=== PATIENT | female | born 1945 | race Caucasian/White ===

== ENCOUNTER → 2018-01-19 11:49 | Outpatient (CLI) | payer OTHER, SELFPAY ==
--- NOTE | 2018-01-19 | DI.MG.S_ITS ---
BILATERAL DIGITAL SCREENING MAMMOGRAM 3D/2D WITH CAD: 01/19/2018 CLINICAL: Routine screening. Family history of breast cancer. Comparison is made to exams dated: 01/07/2016 mammogram, 03/21/2014 mammogram, and 01/20/2012 mammogram - [facility]. There are scattered fibroglandular elements in both breasts. Current study was also evaluated with a Computer Aided Detection (CAD) system. No significant masses, calcifications, or other findings are seen in either breast. There has been no significant interval change. IMPRESSION: NEGATIVE There is no mammographic evidence of malignancy. A 1 year screening mammogram is recommended.(01/20/2019) This exam was interpreted at Station ID: [id number]. NOTE: For mammograms, a report in lay terms will be sent to the patient. Approximately 15% of breast malignancies will not be visualized mammographically. In the management of a palpable breast mass, a negative mammogram must not discourage biopsy of a clinically suspicious lesion. Electronically Signed By: Minerva steen/erendira:01/19/2018 14:25:01 letter sent: Normal Exam ACR BI-RADS Category 1: Negative 3341F
== END ==
PROVIDERS: Visit Provider Internal Medicine
DX: Z12.31 Encounter for screening mammogram for malignant neoplasm of breast (principal); Z80.3 Family history of malignant neoplasm of breast
CPT/HCPCS: 77063; 77067

== ENCOUNTER 2018-09-12 12:47 | Day surgery (SDC) | payer OTHER, SELFPAY ==
--- NOTE | 2018-09-12 | PATH_ITS ---
[facility] Accession Number: [id number] . 01 Material submitted: . colon - ASCENDING COLON POLYP . 02 Diagnosis: Ascending Colon, Polyp, Biopsy: Tubular adenoma. [facility]/09/13/2018 . 02 Electronically signed: . Yanira Solo MD, Pathologist NPI- [id number] . 01 Gross description: . ASCENDING COLON POLYP: Received in formalin is 1 fragment(s) of milton, soft tissue measuring 0.3 x 0.3 x 0.3 cm which is entirely submitted and submitted entirely in 1 cassette(s) /DMC /DMC . 02 Pathologist provided ICD-10: D12.2 . 02 CPT . 425751 Performed at: 01 [facility] [address] [id number] MD Josué Lew MD Phone: [phone] Performed at: 02 [facility] [address] [place], [place] [id number] MD Yanira Solo MD Phone: [phone]
[2018-09-12 13:13] VITALS: BP 140/77; PULSE 63; RESP 16; TEMP 36.8; O2SAT 100; BMI 27.4
[2018-09-12] MEDS: SODIUM CHLORIDE 0.9% 1,000 ML 200 ML IV (13:35)
--- NOTE | 2018-09-12 13:44 | PM.HP.1 ---
History of Present Illness Chief complaint: [id number] Patient History Social History household members: none Family & Social History Social History: household members none Meds Home Medications Medication Instructions Recorded Confirmed Type valacyclovir 500 mg PO BID 09/12/18 09/12/18 History Allergies Allergy/AdvReac Type Severity Reaction Status Date / Time alendronate sodium Allergy Mild Nausea Verified 09/12/18 13:11 Review of Systems Review of Systems All systems reviewed & are unremarkable except as noted in HPI and below Exam Vital Signs (past 8 hours): - 09/12/18 13:13 Temperature 98.2 F Pulse Rate 63 Respiratory Rate 16 Blood Pressure 140/77 Pulse Oximetry 100 Oxygen Delivery Method Room Air Narrative Exam Narrative: Awake alert and oriented x3, pupils reactive, heart regular rate rhythm, lungs clear, abdomen nondistended, extremities without edema Assessment & Plan Assessment & Plan narrative: Rectal bleeding, colonoscopy
[2018-09-12] MEDS: fentaNYL 250 MCG/5 ML INJ IV (14:31)
[2018-09-12] MEDS: MIDAZOLAM 5 MG/5 ML VIAL IV (14:32)
--- NOTE | 2018-09-12 14:37 | PM.OP.ENDO ---
Operative Date/Time/Diagnoses Date of procedure: 09/12/18 Procedure & Clinicians Study performed: Colonoscopy with cold biopsy Moderate conscious sedation was administered by the endoscopy nurse and supervised by the endoscopist. The following parameters were monitored: Oxygen saturation, heart rate, blood pressure, and response to care. Sedation: 3 mg midazolam, 100 mg fentanyl Indications: Rectal bleeding. Last colonoscopy was June 2018. Personal history of colon polyps. Procedure Notes Procedure in detail: Prior to the procedure, history and physical was performed, and patient medications and allergies were reviewed. Preprocedure nursing history and assessment was reviewed. Patient identification and proposed procedure were verified by the physician and nurse in the procedure room. The physical status of the patient was reassessed after the procedure. After informed consent was obtained including risks, benefits, and alternatives, the scope was passed under direct vision. Throughout the procedure, the patient's blood pressure, pulse, and oxygen saturations were monitored continuously. The colonoscope was introduced through the anus and advanced to the cecum as identified by the appendiceal orifice and ileocecal valve. The patient tolerated the procedure well. Bowel prep was deemed adequate to detect polyps greater than 5 mm. PAT and perianal examinations were unremarkable. Retroflexion in the rectum revealed grade 2 nonbleeding internal hemorrhoids. A 3 mm sessile polyp in ascending colon was resected and retrieved with the Iwebalizeo biopsy forceps. The colon was otherwise normal appearing. Impression: Internal hemorrhoids 3 mm ascending colon polyp removed Complications: other (EBL minimal. No complications) Plan for aftercare: Follow-up pathology results Repeat colonoscopy in 5 years for screening purposes Resume previous diet Resume home medications Discharge home with escort
[2018-09-12 14:38] VITALS: BP 130/46; PULSE 62; RESP 14; TEMP 36.3; O2SAT 100
[2018-09-12 14:43] VITALS: BP 128/72; PULSE 60; RESP 14; O2SAT 99
[2018-09-12 14:49] VITALS: BP 130/69; PULSE 55; RESP 16; TEMP 36.3; O2SAT 100
[2018-09-12 15:10] VITALS: BP 135/60; PULSE 57; RESP 14; TEMP 36.8; O2SAT 100
== END 2018-09-12 15:20 | disposition home or self-care (01) ==
LOC: ENDO 12:48
PROVIDERS: Visit Provider Internal Medicine
PROC: 0DJD8ZZ Inspection of Lower Intestinal Tract, Via Natural or Artificial Opening Endoscopic (ICD-10-PCS; CPT 45378; principal; 2018-09-12 14:00)
DX: K62.5 Hemorrhage of anus and rectum (principal); K64.1 Second degree hemorrhoids; D12.2 Benign neoplasm of ascending colon
CPT/HCPCS: 45380; J2250; J3010

== ENCOUNTER → 2018-10-30 09:52 | Outpatient (CLI) | payer OTHER, SELFPAY ==
[2018-10-30 11:09] LABS: Blood Urea Nitrogen 11 mg/dL (7-17); Carbon Dioxide 27 mmol/L (22-32); Chloride 95 mmol/L (98-107); Cholesterol 259 mg/dL (140-199); Estimated Glomerular Filt Rate > 60.0 mL/min (>60); Glucose 98 mg/dL (80-110); HDL Cholesterol 77 mg/dL (40-60); HEMOLYSIS < 15 (0-50); LDL Cholesterol Calculated 152 mg/dL (<100); Potassium 5.1 mmol/L (3.4-5.1); Sodium 131 mmol/L (137-145); Triglycerides 152 mg/dL (35-150)
== END ==
PROVIDERS: PCP Internal Medicine; Visit Provider Internal Medicine
DX: Z00.00 Encounter for general adult medical examination without abnormal findings (principal); G60.3 Idiopathic progressive neuropathy; E87.1 Hypo-osmolality and hyponatremia
CPT/HCPCS: 36415; 80048; 80061

== ENCOUNTER → 2018-11-05 12:25 | Outpatient (CLI) | payer OTHER, SELFPAY | PROVIDERS: PCP Internal Medicine; Visit Provider Internal Medicine | DX: M81.0 Age-related osteoporosis without current pathological fracture (principal); Z78.0 Asymptomatic menopausal state; Z82.62 Family history of osteoporosis | CPT/HCPCS: 77080 ==

== ENCOUNTER → 2020-03-14 14:54 | Outpatient (CLI) | payer OTHER, SELFPAY ==
--- NOTE | 2020-03-14 | DI.MG.S_ITS ---
BILATERAL DIGITAL SCREENING MAMMOGRAM 3D/2D WITH CAD: 03/14/2020 CLINICAL: Routine screening. Family history of breast cancer. Comparison is made to exams dated: 01/19/2018 mammogram - [facility], 01/07/2016 mammogram, and 03/21/2014 mammogram - [facility]. There are scattered fibroglandular elements in both breasts. Current study was also evaluated with a Computer Aided Detection (CAD) system. No significant masses, calcifications, or other findings are seen in either breast. There has been no significant interval change. IMPRESSION: NEGATIVE There is no mammographic evidence of malignancy. A 1 year screening mammogram is recommended. This exam was interpreted at Station ID: [id number]. NOTE: For mammograms, a report in lay terms will be sent to the patient. Approximately 15% of breast malignancies will not be visualized mammographically. In the management of a palpable breast mass, a negative mammogram must not discourage biopsy of a clinically suspicious lesion. Electronically Signed By: Minerva steen/erendira:03/16/2020 16:20:30 letter sent: Normal Exam ACR BI-RADS Category 1: Negative 3341F
== END ==
PROVIDERS: PCP Internal Medicine; Referring Provider Internal Medicine; Visit Provider Internal Medicine
DX: Z12.31 Encounter for screening mammogram for malignant neoplasm of breast (principal); Z80.3 Family history of malignant neoplasm of breast
CPT/HCPCS: 77063; 77067

== ENCOUNTER → 2020-05-20 12:49 | Outpatient (CLI) | payer OTHER, SELFPAY ==
--- NOTE | 2020-05-20 | DI.RAD.S_ITS ---
PROCEDURE: XR LUMBAR SPINE 2-3V INDICATIONS: LOW BACK PAIN TECHNIQUE: 3 views of the lumbar spine were acquired. COMPARISON: None. FINDINGS: Bones: 5 fvf-zko-alnyrsz vertebrae are present. There is trace retrolisthesis of L2 on L3, L5 on S1. Mild multilevel degenerative disc space narrowing is present most severe at L5-S1. Moderate to severe foraminal narrowing is noted L5-S1, mild to moderate L4-5. Non bridging anterior osteophytes are noted at L4 and L5. Compression deformity measuring 36% is present at L1. No vertebral body compression fractures. No suspicious bony lesions. Soft tissues: Overlying bowel gas pattern is normal. No suspicious soft tissue calcifications. IMPRESSION: 1. L1 compression deformity of indeterminate age. 2. Degenerative changes most severe at L4-5 and L5-S1. Dictated by: Suri Dixon M.D. on 05/20/2020 at 16:40 Approved by: Suri Dixon M.D. on 05/20/2020 at 16:41
== END ==
PROVIDERS: PCP Internal Medicine; Referring Provider Physician Assistant; Visit Provider Physician Assistant
DX: M54.5 Low back pain (principal); M47.816 Spondylosis without myelopathy or radiculopathy, lumbar region; M47.817 Spondylosis without myelopathy or radiculopathy, lumbosacral region; M43.8X6 Other specified deforming dorsopathies, lumbar region
CPT/HCPCS: 72100

== ENCOUNTER 2020-06-14 16:26 | Emergency (ER) | payer OTHER, SELFPAY ==
[2020-06-14 16:36] VITALS: BP 185/81; PULSE 85; RESP 14; O2SAT 99
[2020-06-14 16:42] VITALS: BP 185/81; PULSE 82; RESP 12; TEMP 36.8; O2SAT 100; BMI 26.6
--- NOTE | 2020-06-14 16:51 | ED_ITS ---
HPI - General Adult <Speedy TiptonDO bimal - Last Filed: 06/15/20 06:56> General Chief complaint: Abdominal Pain Stated complaint: constipation past week Time Seen by Provider: 06/14/20 16:42 Source: patient Mode of arrival: Ambulatory Limitations: no limitations History of Present Illness HPI narrative: Patient is a 74-year-old female who is here for which she states is constipation. She states she has not had a bowel movement in the past week. She has tried multiple doses of akaj-fkd-jndjmos laxatives without any improvement. She states that her symptoms started when she re-injured her back. He states that several weeks ago she injured her back trying to lift her garage door when she did not have any power. She was placed on anti-inflammatories and Tylenol and Robaxin. She went to go see her primary doctor who ordered x-rays who told her that there was a age indeterminate fracture where she was having discomfort. Was assumed that she did have a fracture. She thought that her symptoms were improving until she was trying to shovel some snow and re-injured her back. She states she is not taking any opioid medications. She has never had any abdominal surgeries. No vomiting. She does feel like her abdomen is distended. She feels like her back pain is worsening. Related Data Home Medications Medication Instructions Recorded Confirmed valacyclovir 500 mg PO BID 09/12/18 09/12/18 Allergies Allergy/AdvReac Type Severity Reaction Status Date / Time alendronate sodium Allergy Mild Nausea Verified 09/12/18 13:11 Review of Systems <Speedy DanutaDO bimal - Last Filed: 06/15/20 06:56> Constitutional Constitutional: Denies fever(s) and Denies headache(s) ENT Ears, Nose, Mouth, and Throat: Denies headache(s) Cardiovascular Cardiovascular: Denies chest pain and Denies dyspnea Respiratory Respiratory: Denies dyspnea Gastrointestinal Gastrointestinal: Denies abdominal pain, Reports bloating, Reports constipation, Denies nausea and Denies vomiting Genitourinary Genitourinary: Denies dysuria Genitourinary: Denies dysuria Musculoskeletal Musculoskeletal: Reports back pain Integumentary/Breasts Skin/Breast: Denies lesions and Denies rash Neurologic Neurologic: Denies behavioral changes and Denies headache(s) Psychiatric Psychiatric: Denies behavioral changes Hematologic/Lymphatic On Anticoagulants: No Allergic/Immunologic Allergic/Immunologic: Denies urticaria Patient History <DO Anthony Ch Last Filed: 06/15/20 06:56> Medical History Back pain Social History household members: none Smoking Status: Never smoker Smoking Status: Never smoker alcohol intake frequency: 0-2 drinks per day Substance Use Type: does not use Exam <Speedy Grossman DO - Last Filed: 06/15/20 06:56> Initial Vital Signs Initial Vital Signs: Vital Signs Pulse Rate 85 06/14/20 16:36 Respiratory Rate 14 06/14/20 16:36 Blood Pressure 185/81 H 06/14/20 16:36 Pulse Oximetry 99 06/14/20 16:36 Const General: cooperative and comfortable Limitations: mental status not altered HENMT Head: normal to inspection and normocephalic Resp Effort & Inspection: normal respiratory effort Cardio Rate: regular rate GI Inspection: distended Palpation: tender (Diffuse) Skin Lesions: no lesions Rashes: no rashes Neuro General: patient alert and patient awake Cognition: normal cognition Speech: speech normal Extrem General: capillary refill normal Psych Appearance: grossly normal and well kempt <Lcuia Lassiter DO - Last Filed: 06/14/20 20:47> Initial Vital Signs Initial Vital Signs: Vital Signs Pulse Rate 85 06/14/20 16:36 Respiratory Rate 14 06/14/20 16:36 Blood Pressure 185/81 H 06/14/20 16:36 Pulse Oximetry 99 06/14/20 16:36 Course <Speedy Grossman DO - Last Filed: 06/15/20 06:56> Orders Ordered: Discontinued Medications Sodium Chloride (Normal Saline 0.9%) 1,000 mls @ 1,000 mls/hr IV BOLUS ONE Stop: 06/14/20 17:50 Last Infusion: 06/14/20 18:44 Dose: 0 mls/hr Documented by: Admin: 06/14/20 17:32 Dose: 1,000 mls/hr Documented by: TRACI Magnesium Citrate (Magnesium Citrate 300 Ml Solution) 300 ml PO NOW ONE Stop: 06/14/20 20:17 Last Admin: 06/14/20 20:22 Dose: 300 ml Documented by: TRACI Sodium Biphosphate/Sodium Phosphate (Fleets Enema) 1 each AR NOW ONE Stop: 06/14/20 18:41 Last Admin: 06/14/20 18:59 Dose: 1 each Documented by: TRACI Vital Signs Vital signs: Vital Signs - 8 hr 06/14/20 16:36 06/14/20 16:42 06/14/20 17:00 Temperature 98.3 F Pulse Rate 85 82 71 Respiratory Rate 14 12 14 Blood Pressure 185/81 H 185/81 H 171/78 H Pulse Oximetry 99 100 100 06/14/20 17:31 06/14/20 20:25 Temperature Pulse Rate 71 91 H Respiratory Rate 16 14 Blood Pressure 174/120 H 163/86 H Pulse Oximetry 98 99 <Lucia Lassiter DO - Last Filed: 06/14/20 20:47> Orders Ordered: Discontinued Medications Sodium Chloride (Normal Saline 0.9%) 1,000 mls @ 1,000 mls/hr IV BOLUS ONE Stop: 06/14/20 17:50 Last Infusion: 06/14/20 18:44 Dose: 0 mls/hr Documented by: Admin: 06/14/20 17:32 Dose: 1,000 mls/hr Documented by: TRACI Magnesium Citrate (Magnesium Citrate 300 Ml Solution) 300 ml PO NOW ONE Stop: 06/14/20 20:17 Last Admin: 06/14/20 20:22 Dose: 300 ml Documented by: TRACI Sodium Biphosphate/Sodium Phosphate (Fleets Enema) 1 each AR NOW ONE Stop: 06/14/20 18:41 Last Admin: 06/14/20 18:59 Dose: 1 each Documented by: TRACI Vital Signs Vital signs: Vital Signs - 8 hr 06/14/20 16:36 06/14/20 16:42 06/14/20 17:00 Temperature 98.3 F Pulse Rate 85 82 71 Respiratory Rate 14 12 14 Blood Pressure 185/81 H 185/81 H 171/78 H Pulse Oximetry 99 100 100 06/14/20 17:31 06/14/20 20:25 Temperature Pulse Rate 71 91 H Respiratory Rate 16 14 Blood Pressure 174/120 H 163/86 H Pulse Oximetry 98 99 Medical Decision Making <Speedy Grossman DO - Last Filed: 06/15/20 06:56> Lab Data Lab results reviewed: Yes I reviewed the patient's lab results. Result diagrams: 06/14/20 17:27 06/14/20 17:27 Labs: Lab Results 06/14/20 06/14/20 Range/Units 17:27 17:27 WBC 5.1 (4.5-11.0) X10^3/uL RBC 3.84 L (4.0-5.2) X10^6/uL Hgb 11.5 L (12.0-16.0) g/dL Hct 34.1 L (36-46) % MCV 88.7 (80-100) fL MCH 29.9 (26-34) PG MCHC 33.7 (30-36) % RDW 12.9 (11.6-14.8) % Plt Count 300 (150-400) X10^3/uL Neut % (Auto) 65.4 (50-75) % Lymph % (Auto) 25.8 (25-40) % [place] % (Auto) 7.6 (3-14) % Eos % (Auto) 0.7 L (2-4) % Baso % (Auto) 0.5 (0-2) % Neut # (Auto) 3300 (6734-0624) /uL Lymph # (Auto) 1300 (1559-8275) /uL [place] # (Auto) 400 (0-900) /uL Eos # (Auto) 0 (0-450) /uL Baso # (Auto) 0 (0-100) /uL Sodium 123 L (137-145) mmol/L Potassium 3.7 (3.4-5.1) mmol/L Chloride 92 L (98-107) mmol/L Carbon Dioxide 26 (22-32) mmol/L BUN 7 (7-17) mg/dL Creatinine 0.49 L (0.52-1.04) mg/dL Estimated GFR > 60.0 (>60) mL/min BUN/Creatinine Ratio 14.3 (6-22) Glucose 110 (80-110) mg/dL Calcium 9.7 (8.4-10.2) mg/dL Total Bilirubin 0.4 (0.2-1.3) mg/dL AST 24 (14-36) IU/L ALT 14 (<35) IU/L Alkaline Phosphatase 119 (38-126) U/L Total Protein 7.0 (6.3-8.2) g/dL Albumin 4.3 (3.5-5.0) g/dL Globulin 2.7 (1.7-4.1) g/dL Albumin/Globulin Ratio 1.6 (1.0-2.8) Lipase 43 (23-300) U/L MDM Narrative Medical decision making narrative: Given her back pain, age in the use of laxatives at home without any improvement we did feel the need to do a CT scan to evaluate for obstruction. Care turned over to Dr. Lassiter to follow-up on CT scan and disposition. <Lucia Lassiter, DO - Last Filed: 06/14/20 20:47> Lab Data Lab results reviewed: Yes I reviewed the patient's lab results. Labs: Lab Results 06/14/20 06/14/20 Range/Units 17:27 17:27 WBC 5.1 (4.5-11.0) X10^3/uL RBC 3.84 L (4.0-5.2) X10^6/uL Hgb 11.5 L (12.0-16.0) g/dL Hct 34.1 L (36-46) % MCV 88.7 (80-100) fL MCH 29.9 (26-34) PG MCHC 33.7 (30-36) % RDW 12.9 (11.6-14.8) % Plt Count 300 (150-400) X10^3/uL Neut % (Auto) 65.4 (50-75) % Lymph % (Auto) 25.8 (25-40) % [place] % (Auto) 7.6 (3-14) % Eos % (Auto) 0.7 L (2-4) % Baso % (Auto) 0.5 (0-2) % Neut # (Auto) 3300 (3320-7063) /uL Lymph # (Auto) 1300 (6984-0875) /uL [place] # (Auto) 400 (0-900) /uL Eos # (Auto) 0 (0-450) /uL Baso # (Auto) 0 (0-100) /uL Sodium 123 L (137-145) mmol/L Potassium 3.7 (3.4-5.1) mmol/L Chloride 92 L (98-107) mmol/L Carbon Dioxide 26 (22-32) mmol/L BUN 7 (7-17) mg/dL Creatinine 0.49 L (0.52-1.04) mg/dL Estimated GFR > 60.0 (>60) mL/min BUN/Creatinine Ratio 14.3 (6-22) Glucose 110 (80-110) mg/dL Calcium 9.7 (8.4-10.2) mg/dL Total Bilirubin 0.4 (0.2-1.3) mg/dL AST 24 (14-36) IU/L ALT 14 (<35) IU/L Alkaline Phosphatase 119 (38-126) U/L Total Protein 7.0 (6.3-8.2) g/dL Albumin 4.3 (3.5-5.0) g/dL Globulin 2.7 (1.7-4.1) g/dL Albumin/Globulin Ratio 1.6 (1.0-2.8) Lipase 43 (23-300) U/L Imaging Data CT scan - abdomen/pelvis: Radiologist's Impression: PROCEDURE: CT ABDOMEN PELVIS W CON INDICATIONS: Back pain, abdominal pain, constipation TECHNIQUE: After the administration of intravenous contrast, 5 mm thick sections acquired from the diaphragm to the symphysis. 5 mm coronal and sagittal reformats were acquired. For radiation dose reduction, the following was used: automated exposure control, adjustment of mA and/or kV according to patient size. COMPARISON: [facility], CR, XR LUMBAR SPINE 2-3V, 05/20/2020, 12:57. FINDINGS: Image quality: Excellent. ABDOMEN: Lung bases: Lung bases are clear. Heart size is normal. Small hiatal hernia. Solid organs: Liver is normal in size. Ill-defined hypodensity in segment 4B near the gallbladder. This could represent focal fatty infiltration. Small hypodense foci scattered in the liver likely benign cyst or hemangioma. Gallbladder is u nremarkable. Biliary system is non dilated. Pancreas enhances normally. Spleen is normal in size and enhancement. No adrenal nodules. Kidneys demonstrate normal size and enhancement, without hydronephrosis. Peritoneum and bowel: The stomach is not distended. There is no small bowel obstruction. There is increased stool throughout the colon. The transverse colon appears thickened. No free fluid or air. Nodes and vessels: No retroperitoneal or mesenteric adenopathy by size criteri a. Aorta and inferior vena cava are normal in size. Miscellaneous: No ventral hernias. PELVIS: Genitourinary: Bladder wall thickness is normal. Small right ovarian cyst measuring 1.7 cm. Small right ovarian calcifications. Miscellaneous: No inguinal hernias or adenopathy. Bones: No suspicious bony lesions. L1 and L2 compression fracture . IMPRESSION: 1. L2 compression fracture new in the interval compared to 05/20/2020. This could be amenable to vertebroplasty. L1 compression fractures similar to the prior exam. 2. Prominent stool throughout the colon concerning for constipation. There appears to be mild thickening of the transverse colon. 3. Ill-defined hypodensity in segment 4B of the liver. This most likely represents focal fatty infiltration. This could be further characterized with MRI of the liver with IV contrast. Dictated by: Matthew Ramírez M.D. on 06/14/2020 at 18:20 MDM Narrative Medical decision making narrative: Patient signed out to me by Dr. Grossman have seen evaluated her myself. CT does show new L2 compression fracture she knew she had L1 compression stool in the colon. She states that she has been drinking a large amount of water because she is constipated which is likely the cause of her hyponatremia. At this time I recommend she drink some Gatorade as opposed to large quantities of water and have her sodium rechecked with her PCP. She is given an enema with some success in the emergency department. At this time she feels ready and able to go home her bottle of magnesium citrate to take at home as well. Discharge Plan Departure Patient Disposition: Home Clinical Impression: Constipation, Acute hyponatremia Instructions: DI for Constipation Activity Restrictions/Additional Instructions: *You have been diagnosed with constipation, low sodium *What to do: Recommend cutting back on her water but staying hydrated with something like Gatorade. Please have her sodium rechecked. Recommend high- fiber diet with fruits and vegetables *Continue to take medications as directed Colace 1 tablet twice a day as needed for constipation Senokot 2 tabs twice a day if needed for constipation *Follow up with your primary care provider in 2-3 days *Return to ER if you should have persistent pain vomiting or fever or any new, worsening or concerning symptoms Prescriptions: No Action valacyclovir 1 gram Tablet 500 mg PO BID RF: 0 Referrals: Ayden Ramirez MD [Primary Care Provider] -
[2020-06-14 17:00] VITALS: BP 171/78; PULSE 71; RESP 14; O2SAT 100
[2020-06-14 17:31] VITALS: BP 174/120; PULSE 71; RESP 16; O2SAT 98
[2020-06-14] MEDS: SODIUM CHLORIDE 0.9% 1,000 ML 1000 ML IV (17:32)
[2020-06-14 17:34] LABS: Add Manual Diff / Slide Review NO; Basophils Absolute Auto 0 /uL (0-100); Basophils Percent Auto 0.5 % (0-2); Eosinophils Absolute Auto 0 /uL (0-450); Eosinophils Percent Auto 0.7 % (2-4); Hematocrit 34.1 % (36-46); Hemoglobin 11.5 g/dL (12.0-16.0); Lymphocytes Absolute Auto 1300 /uL (1100-4500); Lymphocytes Percent Auto 25.8 % (25-40); Mean Corpuscular HGB Conc 33.7 % (30-36); Mean Corpuscular Hemoglobin 29.9 PG (26-34); Mean Corpuscular Volume 88.7 fL (80-100); Monocytes Absolute Auto 400 /uL (0-900); Monocytes Percent Auto 7.6 % (3-14); Neutrophils Absolute Auto 3300 /uL (1500-7000); Neutrophils Percent Auto 65.4 % (50-75); Platelet Count 300 X10^3/uL (150-400); Red Blood Cell Count 3.84 X10^6/uL (4.0-5.2); Red Cell Distribution Width 12.9 % (11.6-14.8); White Blood Cell Count 5.1 X10^3/uL (4.5-11.0)
[2020-06-14 17:45] LABS: Alanine Aminotransferase 14 IU/L (<35); Albumin 4.3 g/dL (3.5-5.0); Albumin Globulin Ratio 1.6 (1.0-2.8); Alkaline Phosphatase 119 U/L (38-126); Aspartate Aminotransferase 24 IU/L (14-36); BUN Creatinine Ratio 14.3 (6-22); Bilirubin Total 0.4 mg/dL (0.2-1.3); Blood Urea Nitrogen 7 mg/dL (7-17); Calcium 9.7 mg/dL (8.4-10.2); Carbon Dioxide 26 mmol/L (22-32); Chloride 92 mmol/L (98-107); Estimated Glomerular Filt Rate > 60.0 mL/min (>60); Globulin 2.7 g/dL (1.7-4.1); Glucose 110 mg/dL (80-110); HEMOLYSIS < 15 (0-50); Lipase 43 U/L (23-300); Potassium 3.7 mmol/L (3.4-5.1); Sodium 123 mmol/L (137-145)
[2020-06-14] MEDS: FLEETS ENEMA 1 EACH PR (18:59)
[2020-06-14] MEDS: MAGNESIUM CITRATE 300 ML SOLUTION PO (20:22)
[2020-06-14 20:25] VITALS: BP 163/86; PULSE 91; RESP 14; O2SAT 99
== END 2020-06-14 20:36 | disposition home or self-care (01) ==
PROVIDERS: Emergency Medicine; Emergency Provider Emergency Medicine; PCP Internal Medicine; Referring Provider Physician Assistant
DX: K59.00 Constipation, unspecified (principal); M54.9 Dorsalgia, unspecified; E87.1 Hypo-osmolality and hyponatremia
CPT/HCPCS: 36415; 74177; 80053; 83690; 85025; 96360; 99283; 99284; Q9967

== ENCOUNTER → 2020-07-11 12:13 | Outpatient (CLI) | payer OTHER, SELFPAY ==
[2020-07-11 13:45] LABS: Potassium 4.4 mmol/L (3.4-5.1)
[2020-07-11 13:46] LABS: BUN Creatinine Ratio 27.1 (6-22); Blood Urea Nitrogen 16 mg/dL (7-17); Calcium 10.6 mg/dL (8.4-10.2); Carbon Dioxide 25 mmol/L (22-32); Chloride 100 mmol/L (98-107); Estimated Glomerular Filt Rate > 60.0 mL/min (>60); Glucose 92 mg/dL (80-110); HEMOLYSIS < 15 (0-50); Sodium 132 mmol/L (137-145)
== END ==
PROVIDERS: PCP Internal Medicine; Referring Provider Internal Medicine; Visit Provider Internal Medicine
DX: E87.1 Hypo-osmolality and hyponatremia (principal)
CPT/HCPCS: 36415; 80048

== ENCOUNTER → 2020-07-22 11:57 | Outpatient (CLI) | payer OTHER, SELFPAY ==
[2020-07-22 14:26] LABS: Vitamin D 25 Hydroxy (D3) 27.3 ng/mL (30.0-100.0)
== END ==
PROVIDERS: PCP Internal Medicine; Referring Provider Internal Medicine; Visit Provider Internal Medicine
DX: M81.0 Age-related osteoporosis without current pathological fracture (principal)
CPT/HCPCS: 36415; 82306

== ENCOUNTER → 2020-07-23 14:59 | Outpatient (CLI) | payer OTHER, SELFPAY ==
[2020-07-23 16:31] LABS: Calcium 9.7 mg/dL (8.4-10.2)
[2020-07-24 06:41] LABS: Parathyroid Hormone Int 44 pg/mL (15-65)
== END ==
PROVIDERS: PCP Internal Medicine; Referring Provider Internal Medicine; Visit Provider Internal Medicine
DX: E83.52 Hypercalcemia (principal)
CPT/HCPCS: 36415; 82310; 83970

== ENCOUNTER → 2021-03-23 15:35 | Outpatient (CLI) | payer OTHER, SELFPAY ==
--- NOTE | 2021-03-23 15:37 | DI.MG.S_ITS ---
BILATERAL DIGITAL SCREENING MAMMOGRAM 3D/2D WITH CAD: 03/23/2021 CLINICAL: Routine screening. Family history of breast cancer. Comparison is made to exams dated: 03/14/2020 mammogram, 01/19/2018 mammogram - [facility], and 01/07/2016 mammogram - [facility]. The tissue of both breasts is heterogeneously dense. This may lower the sensitivity of mammography. Current study was also evaluated with a Computer Aided Detection (CAD) system. No significant masses, calcifications, or other findings are seen in either breast. There has been no significant interval change. IMPRESSION: NEGATIVE There is no mammographic evidence of malignancy. A 1 year screening mammogram is recommended. This exam was interpreted at Station ID: [id number]. NOTE: For mammograms, a report in lay terms will be sent to the patient. Approximately 15% of breast malignancies will not be visualized mammographically. In the management of a palpable breast mass, a negative mammogram must not discourage biopsy of a clinically suspicious lesion. Electronically Signed By: Mariano hall/erendira:03/23/2021 16:46:42 letter sent: Normal Exam ACR BI-RADS Category 1: Negative 3341F
== END ==
PROVIDERS: PCP Internal Medicine; Referring Provider Internal Medicine; Visit Provider Internal Medicine
DX: Z12.31 Encounter for screening mammogram for malignant neoplasm of breast (principal); Z80.3 Family history of malignant neoplasm of breast
CPT/HCPCS: 77063; 77067

== ENCOUNTER → 2021-11-17 13:39 | Outpatient (CLI) | payer OTHER, SELFPAY ==
--- NOTE | 2021-11-17 13:40 | DI.US.S_ITS ---
PROCEDURE: US EXTREMITY NONVASC LOWER LT INDICATIONS: assess problematic cyst vs fat pad TECHNIQUE: Real-time scanning was performed of the left ankle, with image documentation. Color Doppler was also utilized. COMPARISON: None. FINDINGS: At the area of clinical concern, there is a poorly defined fluid collection seen deep to the subcutaneous fat that measures 1.6 x 2.1 x 1 cm. Mild peripheral vascularity can be seen. IMPRESSION: There is a poorly defined fluid collection seen the area of clinical concern. Differential diagnosis includes abscess and hematoma. If it would be helpful for clinical management decision making, please consider a dedicated, scheduled ankle MRI (without and with contrast) for further evaluation (assuming that there is no contraindication). A follow-up ultrasound may also be helpful, if clinically appropriate. Dictated by: Clovis Solis M.D. on 11/17/2021 at 14:24 Approved by: Clovis Solis M.D. on 11/17/2021 at 14:25
== END ==
PROVIDERS: PCP Pediatrics; Referring Provider Pediatrics; Visit Provider Pediatrics
DX: M25.472 Effusion, left ankle (principal)
CPT/HCPCS: 76882

== ENCOUNTER → 2021-11-25 12:23 | Outpatient (CLI) | payer OTHER, SELFPAY ==
--- NOTE | 2021-11-25 12:25 | DI.RAD.S_ITS ---
PROCEDURE: XR ANKLE LT MIN 3V INDICATIONS: fluid collection/pain TECHNIQUE: 3 views of the ankle were acquired. COMPARISON: None. FINDINGS: Bones: No fractures or dislocations. Ankle mortise is normally aligned. No suspicious bony lesions. Soft tissues: No tibiotalar joint effusion. Achilles tendon appears normal. Mild lateral malleolar soft tissue swelling. Retrocalcaneal plantar bone spur. IMPRESSION: 1. No fracture or dislocation. 2. Lateral malleolar soft tissue swelling. 3. Calcaneal enthesopathy. Dictated by: Curtis Balderas Jovanni Interpreted: Clyde Guerrero MD on 11/25/2021 at 13:50 Transcribed by: REYMUNDO on 11/25/2021 at 13:51 Approved by: Clyde Guerrero M.D. on 11/26/2021 at 8:17
== END ==
PROVIDERS: PCP Pediatrics; Referring Provider Pediatrics; Visit Provider Pediatrics
DX: M79.672 Pain in left foot (principal); M77.32 Calcaneal spur, left foot; M79.89 Other specified soft tissue disorders
CPT/HCPCS: 73610

== ENCOUNTER → 2021-12-17 14:58 | Outpatient (CLI) | payer OTHER, SELFPAY ==
--- NOTE | 2021-12-17 14:59 | DI.MRI.S_ITS ---
PROCEDURE: MR ANKLE LT WO CON INDICATIONS: Left ankle swelling TECHNIQUE: Noncontrast sagittal T1 spin echo and T2 fast spin echo with fat saturation, axial proton density fast spin echo and T2 fast spin echo with fat saturation, coronal T1 spin echo and T2 fast spin echo with fat saturation through the ankle/hindfoot. COMPARISON: None. FINDINGS: Image quality: Excellent. Bones and joints: Mild marrow edema involving tip of lateral malleolus and adjacent lateral periphery of talus is seen without discrete fracture line. Moderate osteoarthritic changes are noted in midfoot and hindfoot joints with joint space narrowing, subchondral sclerosis and edema and subchondral cystic changes. Small area of cystic changes and edema involving medial weight-bearing portion of talar dome suggestive of small osteochondral lesion. Similar osteochondral lesions also noted in posterior aspect of distal tibial plafond. No fracture or dislocation. Moderate tibiotalar and subtalar joint effusion is seen, no gross loose bodies. Medial structures: The posterior tibialis, flexor digitorum longus, and flexor hallucis longus tendons are intact. The posterior tibial neurovascular bundle appears normal within the tarsal tunnel, without extrinsic mass effect. The deep layer (anterior and posterior tibiotalar ligaments) and superficial layer (tibionavicular, tibiospring, and tibiocalcaneal ligaments) of the deltoid ligament appear normal. The spring ligament components (superomedial calcaneonavicular, medioplantar oblique calcaneonavicular, and inferoplantar longitudinal ligaments) are intact. Lateral structures: The anterior talofibular, calcaneofibular, and posterior talofibular ligaments appear attenuated with intrasubstance T2 hyperintense signal particularly involving anterior talofibular ligament. More superiorly, the anterior and posterior tibiofibular ligaments also appear attenuated with intrasubstance T2 hyperintense signal. The tibiofibular syndesmosis is normal in width at 2 mm or less. The peroneus longus and brevis tendons demonstrate normal location and morphology. Adjacent bony peroneal tubercle and retrotrochlear prominence are normal in size. The sinus tarsi demonstrates normal fatty signal, without edema, fibrosis, or cyst formation. Visualized sinus tarsi components (cervical ligament, interosseous talocalcaneal ligament, roots of the inferior extensor retinaculum) appear normal. The calcaneonavicular and calcaneocuboid components of the bifurcate ligament appear intact. The dorsal calcaneocuboid ligament appears intact. Anterior structures: The tibialis anterior, extensor hallucis longus, and extensor digitorum longus tendons appear intact. The dorsal talonavicular ligament appears intact. Posterior and plantar structures: Achilles tendon is intact. Medial and lateral bands of the plantar fascia are of normal thickness. No abductor digiti quinti muscle atrophy to suggest Cross neuropathy. IMPRESSION: 1. Moderate midfoot and hindfoot joint osteoarthritis. Suggestion of small osteochondral injuries involving medial talar dome weight-bearing portion and posterior aspect of distal tibial plafond. Mild bony contusion involving lateral ankle mortise. No fracture or dislocation. Small to moderate joint effusion, no gross loose bodies. 2. Medial ankle tendons and ligaments are intact. 3. Low to moderate grade sprain/partial-thickness tear involving lateral ankle ligaments as above. Peroneus tendons are grossly intact. 4. Extensor tendons and Achilles tendon are intact. Dictated by: Andres Suarez M.D. on 12/17/2021 at 16:05 Approved by: Andres Suarez M.D. on 12/17/2021 at 16:16
== END ==
PROVIDERS: PCP Pediatrics; Referring Provider Pediatrics; Visit Provider Pediatrics
DX: M19.072 Primary osteoarthritis, left ankle and foot (principal); M25.472 Effusion, left ankle; S93.492A Sprain of other ligament of left ankle, initial encounter
CPT/HCPCS: 73721

== ENCOUNTER → 2022-01-14 12:50 | Outpatient (CLI) | payer OTHER, SELFPAY ==
[2022-01-14 15:39] LABS: Alanine Aminotransferase 14 IU/L (<35); Albumin 4.3 g/dL (3.5-5.0); Albumin Globulin Ratio 1.6 (1.0-2.8); Alkaline Phosphatase 75 U/L (38-126); Aspartate Aminotransferase 21 IU/L (14-36); BUN Creatinine Ratio 22.8 (6-22); Bilirubin Total 0.4 mg/dL (0.2-1.3); Blood Urea Nitrogen 13 mg/dL (7-17); Calcium 10.2 mg/dL (8.4-10.2); Carbon Dioxide 25 mmol/L (22-32); Chloride 96 mmol/L (98-107); Estimated Glomerular Filt Rate > 60 mL/min (>60); Globulin 2.7 g/dL (1.7-4.1); Glucose 85 mg/dL (80-110); HEMOLYSIS < 15 (0-50); Potassium 4.4 mmol/L (3.4-5.1); Sodium 131 mmol/L (137-145)
== END ==
PROVIDERS: PCP Pediatrics; Referring Provider Pediatrics; Visit Provider Pediatrics
DX: M81.0 Age-related osteoporosis without current pathological fracture (principal)
CPT/HCPCS: 36415; 80053

== ENCOUNTER → 2022-04-21 14:11 | Outpatient (CLI) | payer OTHER, SELFPAY ==
--- NOTE | 2022-04-21 | DI.MG.S_ITS ---
BILATERAL DIGITAL SCREENING MAMMOGRAM 3D/2D WITH CAD: 04/21/2022 CLINICAL: Routine screening. Family history of breast cancer. Comparison is made to exams dated: 03/23/2021 mammogram, 03/14/2020 mammogram, and 01/19/2018 mammogram - [facility]. Both breasts are heterogeneously dense, which may obscure small masses (category c / 51-75% glandular tissue). Current study was also evaluated with a Computer Aided Detection (CAD) system. No significant masses, calcifications, or other findings are seen in either breast. There has been no significant interval change. IMPRESSION: NEGATIVE There is no mammographic evidence of malignancy. A 1 year screening mammogram is recommended. Based on the Tyrer Cuzick model (a risk assessment model) the patient's lifetime risk is 6.2% and her 10 year risk is 5.6%. According to the ACR, ACS, and NCCN guidelines, an annual breast MRI exam along with mammogram is recommended if the patient's lifetime risk is 20% or greater. This exam was interpreted at Station ID: [id number]. NOTE: For mammograms, a report in lay terms will be sent to the patient. Approximately 15% of breast malignancies will not be visualized mammographically. In the management of a palpable breast mass, a negative mammogram must not discourage biopsy of a clinically suspicious lesion. Electronically Signed By: Mario Anderson M.D., jr/erendira:04/21/2022 15:51:18 letter sent: Normal Exam ACR BI-RADS Category 1: Negative [id number]
== END ==
PROVIDERS: PCP Family Medicine; Referring Provider Family Medicine; Visit Provider Family Medicine
DX: Z12.31 Encounter for screening mammogram for malignant neoplasm of breast (principal); Z80.3 Family history of malignant neoplasm of breast
CPT/HCPCS: 77063; 77067

== ENCOUNTER → 2023-04-26 14:10 | Outpatient (CLI) | payer OTHER, SELFPAY ==
--- NOTE | 2023-04-26 14:11 | DI.MG.S_ITS ---
BILATERAL DIGITAL SCREENING MAMMOGRAM 3D/2D WITH CAD: 04/26/2023 CLINICAL: Routine screening. Family history of breast cancer. Comparison is made to exams dated: 04/21/2022 mammogram, 03/23/2021 mammogram, and 03/14/2020 mammogram - [facility]. Both breasts are heterogeneously dense, which may obscure small masses (category c / 51-75% glandular tissue). Current study was also evaluated with a Computer Aided Detection (CAD) system. No significant masses, calcifications, or other findings are seen in either breast. There has been no significant interval change. IMPRESSION: NEGATIVE There is no mammographic evidence of malignancy. A 1 year screening mammogram is recommended. Based on the Tyrer Cuzick model (a risk assessment model) the patient's lifetime risk is 5.7% and her 10 year risk is 5.7%. According to the ACR, ACS, and NCCN guidelines, an annual breast MRI exam along with mammogram is recommended if the patient's lifetime risk is 20% or greater. This exam was interpreted at Station ID: [id number]. NOTE: For mammograms, a report in lay terms will be sent to the patient. Approximately 15% of breast malignancies will not be visualized mammographically. In the management of a palpable breast mass, a negative mammogram must not discourage biopsy of a clinically suspicious lesion. Electronically Signed By: Matthew durham/erendira:04/26/2023 17:13:55 letter sent: Normal Exam ACR BI-RADS Category 1: Negative [id number]
== END ==
PROVIDERS: PCP Family Medicine; Referring Provider Family Medicine; Visit Provider Family Medicine
DX: Z12.31 Encounter for screening mammogram for malignant neoplasm of breast (principal); Z80.3 Family history of malignant neoplasm of breast; R92.333 Mammographic heterogeneous density, bilateral breasts
CPT/HCPCS: 77063; 77067

== ENCOUNTER → 2023-06-23 | Outpatient (CLI) | payer OTHER, SELFPAY ==
--- NOTE | 2023-06-23 14:43 | DI.RAD.S_ITS ---
PROCEDURE: XR DEXA AXIAL SKELETON INDICATIONS: bone density screening COMPARISON: [facility], CR, XR DEXA AXIAL SKELETON, 11/05/2018, 12:53. FINDINGS: This blank DEXA report has been sent in error by the PACS system. The correct and complete report will be forthcoming in 1-2 days. Thank you for your patience and understanding. Dictated by: Gold Sue M.D. on 06/23/2023 at 16:50 Approved by: Gold Sue M.D. on 06/23/2023 at 16:51
--- NOTE | 2023-06-23 15:16 | DI.DEXA.S_ITS ---
Bone Density Report Name: HERMINIA CONNOR Age: 77 Sex: Female Ethnicity: White Date of : 1945 Indication: postmenopausal osteoporosis; monitoring treatment; prior fracture; Referring Provider: MARTA ALCALA Study: Bone densitometry was performed. Exam Date: June 23, 2023 Accession number: [id number] Bone Density: Region BMD T-score Z-score Classification AP Spine(L1, L2, L4) 1.018 -0.1 2.3 Normal Femoral Neck (Left) 0.660 -1.7 0.4 Osteopenia Total Hip (Left) 0.729 -1.7 0.1 Osteopenia Femoral Neck (Right) 0.717 -1.2 0.9 Osteopenia Total Hip (Right) 0.719 -1.8 0.0 Osteopenia Total Hip Mean 0.724 -1.8 0.1 Osteopenia World Health Organization criteria for BMD impression classify patients as: Normal (T-score at or above -1.0), Osteopenia (T-score between -1.0 and -2.5), or Osteoporosis (T-score at or below -2.5). 10-year Fracture Risk: FRAX not reported because: Prior hip or vertebral fracture Treated for osteoporosis Previous Exams: -- Region Exam Age BMD T-score BMD Change BMD Change Date g/cm2 vs Baseline vs Previous -- AP Spine (L1-L2,L4) 06/23/2023 77 1.018 -0.1 0.345 (51.2%)# 0.345 (51.2%)# 11/05/2018 73 0.673 -3.3 Total Hip(Left) 06/23/2023 77 0.729 -1.7 0.055 (8.1%)# 0.055 (8.1%)# 11/05/2018 73 0.674 -2.2 Total Hip(Right) 06/23/2023 77 0.719 -1.8 0.078 (12.3%)# 0.078 (12.3%)# 11/05/2018 73 0.641 -2.5 -- *Denotes significance at 95% confidence level, LSC for AP Spine = 0.022 g/cm2, LSC for Total Hip = 0.027 g/cm2 # Denotes dissimilar scan types or analysis methods Impression: The patient has low bone mass, based on the Right Total Hip T-score. The patient has risk factors, including: previous fracture. No significant bone loss was observed. Discussion: PATIENT UNDER TREATMENT WITH NO SIGNIFICANT BMD LOSS SINCE LAST EXAM. In an untreated patient, BMD typically declines with age. A lack of decline or gain is usually a sign that treatment is efficacious and fracture risk is reduced. It is important to ask patients whether they are taking their medications and to encourage continued and appropriate compliance with their osteoporosis therapies to reduce fracture risk. It is also important to review their risk factors and encourage appropriate calcium and vitamin D intakes, exercise, fall prevention and other lifestyle measures. Follow-Up: Consider a repeat BMD and Vertebral Fracture Assessment (VFA) exam in 2 years or sooner if medically necessary, to reassess this patient's status. Reported by: DEBORAH PAUL MD on 06/23/2023 4:26:00 PM.
== END ==
LOC: RAD 14:43
PROVIDERS: PCP Family Medicine; Referring Provider Family Medicine; Visit Provider Family Medicine
DX: M81.0 Age-related osteoporosis without current pathological fracture (principal); E87.1 Hypo-osmolality and hyponatremia; E55.9 Vitamin D deficiency, unspecified; Z78.0 Asymptomatic menopausal state; Z79.83 Long term (current) use of bisphosphonates; Z90.710 Acquired absence of both cervix and uterus; Z87.311 Personal history of (healed) other pathological fracture
CPT/HCPCS: 77080

== ENCOUNTER → 2023-08-22 14:42 | Outpatient (CLI) | payer OTHER, SELFPAY ==
[2023-08-22 15:17] LABS: Add Manual Diff / Slide Review NO; Basophils Absolute Auto 0 /uL (0-100); Basophils Percent Auto 0.5 % (0-2); Eosinophils Absolute Auto 100 /uL (0-450); Eosinophils Percent Auto 1.4 % (2-4); Hematocrit 36.4 % (36-46); Hemoglobin 12.1 g/dL (12.0-16.0); Lymphocytes Absolute Auto 1500 /uL (1100-4500); Lymphocytes Percent Auto 26.1 % (25-40); Mean Corpuscular HGB Conc 33.1 % (30-36); Mean Corpuscular Hemoglobin 29.4 PG (26-34); Mean Corpuscular Volume 88.7 fL (80-100); Monocytes Absolute Auto 300 /uL (0-900); Monocytes Percent Auto 5.4 % (3-14); Neutrophils Absolute Auto 3900 /uL (1500-7000); Neutrophils Percent Auto 66.6 % (50-75); Platelet Count 249 X10^3/uL (150-400); Red Blood Cell Count 4.11 X10^6/uL (4.0-5.2); Red Cell Distribution Width 14.1 % (11.6-14.8); White Blood Cell Count 5.9 X10^3/uL (4.5-11.0)
[2023-08-22 15:53] LABS: Alanine Aminotransferase 21 IU/L (<35); Albumin 4.4 g/dL (3.5-5.0); Albumin Globulin Ratio 1.6 (1.0-2.8); Alkaline Phosphatase 70 U/L (38-126); Aspartate Aminotransferase 21 IU/L (14-36); BUN Creatinine Ratio 24.6 (6-22); Bilirubin Total 0.6 mg/dL (0.2-1.3); Blood Urea Nitrogen 16 mg/dL (7-17); Calcium 9.7 mg/dL (8.4-10.2); Carbon Dioxide 23 mmol/L (22-32); Chloride 103 mmol/L (98-107); Estimated Glomerular Filt Rate > 60 mL/min (>60); Globulin 2.7 g/dL (1.7-4.1); Glucose 108 mg/dL (80-110); HEMOLYSIS < 15 (0-50); Potassium 3.8 mmol/L (3.4-5.1); Sodium 134 mmol/L (137-145); Total Protein 7.1 g/dL (6.3-8.2)
[2023-08-22 16:09] LABS: Vitamin D 25 Hydroxy (D3) 35.2 ng/mL (30.0-100.0)
== END ==
PROVIDERS: PCP Family Medicine; Referring Provider Family Medicine; Visit Provider Family Medicine
DX: M85.89 Other specified disorders of bone density and structure, multiple sites (principal); E87.1 Hypo-osmolality and hyponatremia; M81.0 Age-related osteoporosis without current pathological fracture; E55.9 Vitamin D deficiency, unspecified
CPT/HCPCS: 36415; 80053; 82306; 85025

== ENCOUNTER → 2023-12-06 14:36 | Outpatient (CLI) | payer OTHER, SELFPAY ==
--- NOTE | 2023-12-06 14:39 | DI.RAD.S_ITS ---
PROCEDURE: XR LUMBAR SPINE MIN 4V INDICATIONS: atraumatic acute on chr pain, new weakness L leg TECHNIQUE: 5 views of the lumbar spine acquired, including oblique views. COMPARISON: [facility], APRIL, XR LUMBAR SPINE 2-3V, 05/20/2020, 12:57. FINDINGS: Bones: 5 nonrib-bearing vertebrae are present. Compression fractures of L1 and L2 are identified with approximately 50% height loss anteriorly. Compression fracture of L2 was not seen on prior study from 2020; although L2 fracture is still of unknown chronicity. Soft tissues: Overlying bowel gas pattern is nonobstructive. IMPRESSION: 1. Compression fracture of L2 is of unknown chronicity, but new since the 2020 study. If indicated, MRI may provide additional diagnostic benefit. 2. Compression fracture of L1 again identified Dictated by: Rosales Salvador M.D. on 12/06/2023 at 16:43 Approved by: Rosales Salvador M.D. on 12/06/2023 at 16:48
--- NOTE | 2023-12-06 14:39 | DI.RAD.S_ITS ---
PROCEDURE: XR HIP W PEL IF DONE LT 2V INDICATIONS: atraumatic acute on chr hip pain, new weakness L leg TECHNIQUE: Single view of the pelvis and frogleg lateral view of the left hip is provided. COMPARISON: None. FINDINGS: Bones: Osteopenia. No acute fracture or subluxation seen. Severe DJD of both hips is identified with joint space narrowing, subchondral sclerosis, osteophytes. Soft tissues: Few phleboliths project over the pelvis. Bowel gas pattern is nonobstructive. IMPRESSION: Osteopenia DJD of the hips Dictated by: Rosales Salvador M.D. on 12/06/2023 at 16:41 Approved by: Rosales Salvador M.D. on 12/06/2023 at 16:42
== END ==
PROVIDERS: PCP Family Medicine; Referring Provider Family Medicine; Visit Provider Family Medicine
DX: M16.0 Bilateral primary osteoarthritis of hip (principal); M85.89 Other specified disorders of bone density and structure, multiple sites; M48.56XA Collapsed vertebra, not elsewhere classified, lumbar region, initial encounter for fracture; M25.552 Pain in left hip; R29.898 Other symptoms and signs involving the musculoskeletal system; G89.29 Other chronic pain
CPT/HCPCS: 72110; 73502

== ENCOUNTER → 2023-12-15 13:43 | Outpatient (CLI) | payer OTHER, SELFPAY ==
--- NOTE | 2023-12-15 13:44 | DI.MRI.S_ITS ---
PROCEDURE: MR LUMBAR SPINE WO CON INDICATIONS: rule out nerve compression causing new L leg weakness TECHNIQUE: Noncontrast sagittal T1 spin echo and T2 fast echo, sagittal STIR, and T2 fast spin echo through the lumbar spine. In cases with scoliosis, additional coronal T2 fast spin echo may be performed. COMPARISON: None. FINDINGS: Image quality: Excellent. Alignment and Curvature: There is normal bony alignment. Bone Marrow: T11, L1 and L2 compression fractures without marrow edema. Modic type 1 edematous endplate changes noted at L2-3 Spinal Cord: Conus medullaris terminates at the L1 level. Visualized cord demonstrates normal signal and size. Paraspinous Soft Tissues: No paravertebral masses. T12-L1: Central or foraminal stenosis. L1-L2: Mild disc bulge. No central or foraminal stenosis. L2-L3: Arthropathy. Moderate right and mild left foraminal stenosis L3-L4: Disc bulge and arthropathy. Mild central stenosis. No foraminal stenosis. L4-L5: Arthropathy. [id number] central stenosis. No foraminal stenosis. L5-S1: Arthropathy. No central stenosis. Mild left and no right foraminal stenosis. IMPRESSION: Multilevel degenerative disc disease and arthropathy results in varying degrees of central and foraminal stenosis including mild to moderate central stenosis L4-5 Approved by: Jhonny Johnson M.D. on 12/15/2023 at 16:52
== END ==
PROVIDERS: PCP Family Medicine; Referring Provider Family Medicine; Visit Provider Family Medicine
DX: S22.080A Wedge compression fracture of T11-T12 vertebra, initial encounter for closed fracture (principal); S32.010A Wedge compression fracture of first lumbar vertebra, initial encounter for closed fracture; S32.020A Wedge compression fracture of second lumbar vertebra, initial encounter for closed fracture; M81.0 Age-related osteoporosis without current pathological fracture; M47.816 Spondylosis without myelopathy or radiculopathy, lumbar region; M48.061 Spinal stenosis, lumbar region without neurogenic claudication; M51.36 Other intervertebral disc degeneration, lumbar region; X58.XXXA Exposure to other specified factors, initial encounter
CPT/HCPCS: 72148

== ENCOUNTER → 2024-05-04 11:22 | Outpatient (CLI) | payer OTHER, SELFPAY ==
--- NOTE | 2024-05-04 11:28 | DI.MG.S_ITS ---
BILATERAL DIGITAL SCREENING MAMMOGRAM 3D/2D WITH CAD: 05/04/2024 CLINICAL: Routine screening. Family history of breast cancer. Comparison is made to exams dated: 04/26/2023 mammogram, 04/21/2022 mammogram, and 03/23/2021 mammogram - [facility]. The breasts are heterogeneously dense, which may obscure small masses (category c / 51-75% glandular tissue). Current study was also evaluated with a Computer Aided Detection (CAD) system. No significant masses, calcifications, or other findings are seen in either breast. There has been no significant interval change. IMPRESSION: NEGATIVE There is no mammographic evidence of malignancy. A 1 year screening mammogram is recommended. Based on the Tyrer Cuzick model (a risk assessment model) the patient's lifetime risk is 5.2% and her 10 year risk is 0.0%. According to the ACR, ACS, and NCCN guidelines, an annual breast MRI exam along with mammogram is recommended if the patient's lifetime risk is 20% or greater. This exam was interpreted at Station ID: [id number]. NOTE: For mammograms, a report in lay terms will be sent to the patient. Approximately 15% of breast malignancies will not be visualized mammographically. In the management of a palpable breast mass, a negative mammogram must not discourage biopsy of a clinically suspicious lesion. Electronically Signed By: Jay howell/erendira:05/06/2024 11:46:18 letter sent: Normal Exam ACR BI-RADS Category 1: Negative
== END ==
PROVIDERS: PCP Family Medicine; Referring Provider Family Medicine; Visit Provider Family Medicine
DX: Z12.31 Encounter for screening mammogram for malignant neoplasm of breast (principal); Z80.3 Family history of malignant neoplasm of breast; R92.333 Mammographic heterogeneous density, bilateral breasts
CPT/HCPCS: 77063; 77067